=== PATIENT | female | born 1985 | race Two or more races ===

== ENCOUNTER 2020-01-21 06:55 | Emergency (ER) | payer SELFPAY ==
[2020-01-21] MEDS ORDERED: Albuterol HFA 18 Gm Inhaler INH STA (07:13)
--- NOTE | 2020-01-21 07:21 | EDM.PDOC ---
ED HPI GENERAL MEDICAL PROBLEM - General Chief Complaint: Medication Administration Stated Complaint: ASTHMA Time Seen by Provider: 01/21/20 07:05 - History of Present Illness INITIAL COMMENTS - FREE TEXT/NARRATIVE: 34-year-old female with history of asthma presents with wheezing and being out of her asthma inhaler. Patient reports that she started to have trouble breathing at about 10 PM. She had nothing left in her inhaler and ended up needing to call EMS at that time gave her a nebulizer treatment and she felt much improved. However, she continues to experience shortness of breath. No chest pain no fevers no chills no cough patient was doing well prior to the onset of the symptoms at around 10 PM last night. Symptoms similar to prior asthma exacerbation. Patient does not smoke tobacco products but occasionally uses marijuana. No lower extremity pain or swelling patient had some tea and coffee this morning because she heard I can help with asthma she has a caffeine sensitivity and so some mild palpitations at this time. Symptoms mild to moderate without exacerbating or alleviating factors radiation or other associated symptoms. - Related Data Allergies Allergy/AdvReac Type Severity Reaction Status Date / Time No Known Allergies Allergy Verified 01/21/20 07:10 ED ROS GENERAL - Review of Systems Review Of Systems: See Below Free Text/Narrative/Comment: General: No fever. Skin: No rash. Eyes: No vision problems. ENT: No sore throat. Neck: No neck stiffness. Respiratory: Per HPI Cardiac: No chest pain. Gastrointestinal: No nausea, vomiting or abdominal pain. Urinary: No dysuria. Musculoskeletal: No myalgias/arthralgias. Neurologic: No headache. ED EXAM, GENERAL - Physical Exam Exam: See Below Free Text/Narrative:: General Appearance: No acute distress, appears comfortable Skin: No rash HEENT: Normocephalic/atraumatic, sclera anicteric, mucous membranes moist Neck: Normal range of motion Chest and Lungs: Biphasic monophonic wheezing primarily in the expiratory phase with some mild inspiratory wheezing as well no retractions no stridor work of breathing otherwise normal Cardiovascular: Minimally tachycardic rate and regular rhythm, no murmur Abdomen: Soft, non-tender Back: Normal Musculoskeletal: No edema or tenderness Neurologic: Awake, alert, no obvious deficits, moving all extremities Psychiatric: Appropriate, cooperative Course - Vital Signs Last Recorded V/S: Last Vital Signs Temp 96.2 F L 01/21/20 07:10 Pulse 104 H 01/21/20 07:10 Resp 20 01/21/20 07:10 BP 135/100 H 01/21/20 07:10 Pulse Ox 95 01/21/20 07:10 - Orders/Labs/Meds Orders: Active Orders 24 hr Category Date Time Status RT Post Treatment Assessment [RC] Click to Edit Care 01/21/20 07:15 Ordered RT Pre-Treatment Assessment [RC] Click to Edit Care 01/21/20 07:15 Ordered Albuterol [Ventolin HFA] Med 01/21/20 07:13 Stat 2 gm INH NOW STA Departure - Departure Time of Disposition: : Disposition: Home, Self-Care 01 Condition: Good Clinical Impression: Asthma exacerbation - Discharge Information *PRESCRIPTION DRUG MONITORING PROGRAM REVIEWED*: Not Applicable *COPY OF PRESCRIPTION DRUG MONITORING REPORT IN PATIENT INA: Not Applicable Instructions: Asthma, Adult Referrals: PCP,None [Primary Care Provider] - Additional Instructions: You can take up to 4 puffs from the albuterol inhaler at a time. However, I would start with 2 puffs at a time. If you are finding that you are using the inhaler more frequently than every 6 hours consistently needing more than 2 puffs at a time, or if your symptoms do not resolve by tomorrow or if they worsen it is important that you see a medical provider right away for another evaluation. The following information is given to patients seen in the emergency department who are being discharged to home. This information is to outline your options for follow-up care. We provide all patients seen in our emergency department with a follow-up referral. The need for follow-up, as well as the timing and circumstances, are variable depending upon the specifics of your emergency department visit. If you don't have a primary care physician on staff, we will provide you with a referral. We always advise you to contact your personal physician following an emergency department visit to inform them of the circumstance of the visit and for follow-up with them and/or the need for any referrals to a consulting specialist. The emergency department will also refer you to a specialist when appropriate. This referral assures that you have the opportunity for follow-up care with a specialist. All of these measure are taken in an effort to provide you with optimal care, which includes your follow-up. Under all circumstances we always encourage you to contact your private physician who remains a resource for coordinating your care. When calling for follow-up care, please make the office aware that this follow-up is from your recent emergency room visit. If for any reason you are refused follow-up, please contact the [facility] Emergency Department at and asked to speak to the emergency department charge nurse. Sepsis Event Note (ED) - Evaluation Sepsis Screening Result: Possible Sepsis Risk - Focused Exam Vital Signs: Vital Signs Temp Pulse Resp BP Pulse Ox 01/21/20 07:10 96.2 F L 104 H 20 135/100 H 95 - My Orders Last 24 Hours: My Active Orders 01/21/20 07:13 Albuterol [Ventolin HFA] 2 gm INH NOW STA 01/21/20 07:15 RT Post Treatment Assessment [RC] Click to Edit RT Pre-Treatment Assessment [RC] Click to Edit - Assessment/Plan Last 24 Hours: My Active Orders 01/21/20 07:13 Albuterol [Ventolin HFA] 2 gm INH NOW STA 01/21/20 07:15 RT Post Treatment Assessment [RC] Click to Edit RT Pre-Treatment Assessment [RC] Click to Edit Assessment:: 34-year-old female presenting with signs and symptoms most consistent with mild asthma exacerbation. Multiple other etiologies considered. No concern for ACS in this patient no chest pain no risk factors for cardiac disease. PE carefully considered but exam is very consistent with mild asthma exacerbation patient is without hypoxia without clear risk factors for PE. Pulmonary exam is without f ocality there is no cough or fever history no concern for pneumonia nothing that suggest pneumothorax. Patient has no infectious symptoms such as rhinorrhea sore throat etc. no indication that this represents Covid. Patient provided with a dose of albuterol inhaler. Patient symptoms starting to improve. Patient is traveling home to [place] today. She has never required steroids, intubation, hospitalization or other more aggressive measures to control her asthma symptoms. Would not steroid burst her today but we discussed the need to follow-up with a medical provider if her symptoms have not improved by the time she gets to [place].
== END 2020-01-21 07:32 | disposition home or self-care (01) ==
LOC: MW.ED 06:55
DX: J45.901 Unspecified asthma with (acute) exacerbation (principal)
CPT/HCPCS: 99283; 99284; J3535-GY